=== PATIENT | female | born 1970 | race Asian ===

== ENCOUNTER 2023-01-11 11:37 | Emergency (ER) | payer MEDICAID, OTHER ==
[~2023-01-11] VITALS: Ht 152.4 cm; Wt 77.3 kg
[2023-01-11] MEDS ORDERED: METO50TA9 PO (11:46)
[2023-01-11] MEDS ORDERED: LISI-659 PO (11:46)
[2023-01-11] MEDS ORDERED: ATOR40TA28 PO (11:46)
[2023-01-11] MEDS ORDERED: LIDOCAINE 1% 10 ML VIAL PERC ONE (12:45)
[2023-01-11] MEDS ORDERED: NEOMYCIN/BACITRACIN/POLYMYXIN B OINTMENT PACKET TP ONE (14:15)
[2023-01-11] MEDS ORDERED: LISINOPRIL 10 MG TABLET PO ONE (14:30)
[2023-01-11] MEDS ORDERED: HYDROCHLOROTHIAZIDE 25 MG TABLET PO ONE (14:30)
[2023-01-11 16:01] VITALS: BP 184/114
[2023-01-11] MEDS ORDERED: IBUP-1492 PO (16:18)
[2023-01-11] MEDS ORDERED: BACI28OI9 TP (16:19)
== END 2023-01-11 16:39 | disposition home or self-care (01) ==
LOC: EMS 11:43
DX: S01.81XA Laceration without foreign body of other part of head, initial encounter (principal); I10 Essential (primary) hypertension; F17.210 Nicotine dependence, cigarettes, uncomplicated; F12.90 Cannabis use, unspecified, uncomplicated; Z91.013 Allergy to seafood; X58.XXXA Exposure to other specified factors, initial encounter; Y93.89 Activity, other specified; Y92.89 Other specified places as the place of occurrence of the external cause; Y99.8 Other external cause status
CPT/HCPCS: 99284; J3490; 99283